=== PATIENT | male | born 1970 | race Caucasian/White ===

== ENCOUNTER 2022-06-08 11:30 | Emergency (ER) | payer OTHER ==
[~2022-06-08 11:30] MED LIST: AVAPRO300 MG PO; LOVAZA1 GM PO; NEURONTIN400 MG PO; TRAMADOL HCL50 MG PO
[2022-06-08 14:04] LABS: BASOPHIL 0.7 % (0-2); EOSINOPHIL 9.2 % (0-5); HCT 40.8 % (42.0-52.0); HGB 13.7 g/dl (13.2-18.0); MCH 30.1 pg (25.0-31.0); MCHC 33.6 g/dL (32.0-36.0); MCV 89.7 fL (78.0-100.0); MPV 9.7 fL (6.0-9.5); NEUTROPHIL 55.9 % (41-80); NRBC 0; PLT 194 K/uL (150-400); RBC 4.55 M/uL (4.70-6.00); RDW 12.9 % (11.5-14.0); WBC 8.3 K/uL (4.0-10.5)
[2022-06-08 14:20] LABS: BUN/CREAT RATIO (CALC) 10.2 RATIO; CREATININE 0.88 mg/dL (0.67-1.17); POTASSIUM 4.1 mmol/L (3.5-5.1)
[2022-06-08] MEDS ORDERED: PREDNISONE 20MG20 MG PO (14:36)
[2022-06-08] MEDS ORDERED: VALACYCLOVIR1000 MG PO (14:39)
== END 2022-06-08 14:50 | disposition home or self-care (01) ==
LOC: FER 11:30
PROVIDERS: Nurse Practitioner Family
DX: G51.0 Bell's palsy (principal); I10 Essential (primary) hypertension; E11.9 Type 2 diabetes mellitus without complications; Z79.84 Long term (current) use of oral hypoglycemic drugs; Z79.899 Other long term (current) drug therapy
CPT/HCPCS: 36415; 70450; 80048; 85025